=== PATIENT | female | born 1935 | race Caucasian/White ===

== ENCOUNTER 2019-01-24 12:00 | Observation (INO) | payer OTHER ==
[~2019-01-24] VITALS: Ht 157.5 cm; Wt 81.6 kg
[~2019-01-24 12:00] MED LIST: ATIVAN0.5 MG PO; AZITHROMYCIN 2250 MG PO; DIOVAN 80 MG TA80 M1 PO; ELIQUIS5 MG PO; FENOFIBRATE160 MG PO; FIBER0.52 G1 PO; FLAX SEED OIL1000 MG PO; MECLIZINE HCL12.5 MG PO; METFORMIN HCL500 MG PO; MULTIVITAMINS1 EAC7 PO; NEXIUM40 MG PO; PRAVACHOL20 MG PO; TUMS PO; VITAMIN E400 UNIT PO
[2019-01-24 12:01] VITALS: BP 82/50
[2019-01-24 12:30] LABS: ABSOLUTE EOSINOPHILS 0.1 thou/uL (0.0-0.7); ABSOLUTE LYMPHOCYTES 1.3 thou/uL (0.8-5.3); ABSOLUTE MONOCYTES 0.5 thou/uL (0.0-1.2); ABSOLUTE NEUTROPHILS 4.9 thou/uL (1.6-8.1); BASOPHILS 0.6 %; EOSINOPHILS 1.9 %; HEMATOCRIT 37.3 % (37.0-47.0); HEMOGLOBIN 12.2 gm/dL (12.0-15.0); LYMPHOCYTES 18.4 %; MCH 31.4 pg (26.0-34.0); MCHC 32.7 g/dL (28.0-37.0); MCV 96.1 fL (80.0-100.0); MONOCYTES 7.6 %; MPV 7.7 fl. (7.2-11.1); NUCLEATED RBCS 0 /100WBC; PLATELET COUNT* 286 thou/uL (150-400); POLYS 71.5 %; RBC 3.88 mil/uL (4.20-5.00); RDW-CV 13.6 % (10.5-14.5); WBC 6.9 thou/uL (4.0-11.0)
[2019-01-24 12:38] LABS: ANION GAP 7 mmol/L (7-16); BUN 27 mg/dL (7-18); CHLORIDE 106 mmol/L (98-107); CO2 30 mmol/L (21-32); CREATININE 1.3 mg/dL (0.6-1.3); GLUCOSE 115 mg/dL (70-99); POTASSIUM 4.4 mmol/L (3.5-5.1); SODIUM 143 mmol/L (136-145)
[2019-01-24 12:41] LABS: PROTIME 11.8 Seconds (9.20-11.50)
[2019-01-24 12:42] LABS: URINE BILIRUBIN NEGATIVE (Negative); URINE BLOOD NEGATIVE (Negative); URINE CLARITY CLEAR; URINE COLOR YELLOW; URINE GLUCOSE-RANDOM NEGATIVE (Negative); URINE KETONES TRACE (Negative); URINE LEUKOCYTES-REFLEX TRACE (Negative); URINE NITRITE-REFLEX NEGATIVE (Negative); URINE PROTEIN 1+ (Negative); URINE SPECIFIC GRAVITY >= 1.030 (1.005-1.030); URINE UROBILINOGEN 0.2 E.U./dl (0.2-1.0)
[2019-01-24 12:42] LABS: APTT 26.3 Seconds (25.0-31.3); INR 1.2
[2019-01-24 12:47] LABS: ALBUMIN 3.5 g/dL (3.4-5.0); ALKALINE PHOSPHATASE 33 U/L (46-116); LIPASE 106 U/L (73-393); SGOT 29 U/L (15-37); SGPT 29 U/L (30-65); TOTAL BILIRUBIN 0.3 mg/dL (<0.1-1.0); TOTAL PROTEIN 6.6 g/dL (6.4-8.2); TROPONIN-I LEVEL <0.06 ng/mL (<0.06)
[2019-01-24 12:49] LABS: BACTERIA-REFLEX 1-9 Few /HPF (None Seen); CRYSTALS None Seen /LPF (None Seen); FINE GRANULAR CASTS 0-3 Few /LPF (None Seen); HYALINE CASTS 4-10 Moderate /LPF (None Seen); MUCUS >6 Heavy strn/LPF (None Seen); SQUAMOUS 4-10 Moderate /LPF (0-3); URINE RBC 0-2 Rare /HPF (0-2); URINE WBC-REFLEX 0-5 Rare /HPF (0-5)
[2019-01-24 14:27] VITALS: BP 133/76
[2019-01-24 15:00] VITALS: BP 122/64
[2019-01-24 16:00] VITALS: BP 150/72; BP 156/72; BP 158/81
[2019-01-24 16:08] VITALS: BP 131/63
[2019-01-24 19:40] VITALS: BP 136/66
[2019-01-25] VITALS: BP 131/58
[2019-01-25 04:00] VITALS: BP 143/71
[2019-01-25 04:42] LABS: CALCIUM 8.7 mg/dL (8.5-10.1); CREATININE 0.9 mg/dL (0.6-1.3); MAGNESIUM 1.5 mg/dL (1.8-2.4); POTASSIUM 3.9 mmol/L (3.5-5.1)
[2019-01-25 08:06] VITALS: BP 144/76
[2019-01-25 09:48] VITALS: BP 144/76
[2019-01-25 12:15] VITALS: BP 155/78
--- NOTE | 2019-01-25 14:20 | 2DMMODE ---
[place] [address] 2 D/M-MODE ECHOCARDIOGRAM Name: RAMANDEEPNARAYAN Room: [address] Venus [place]row#: [id number] Admission: 01/24/19 Attend Phys: Desean Venegas, Discharge: Date of : 35 Date of Service: 01/25/19 1420 Report #: [id number] THIS REPORT FOR: //name// APPROVED REPORT Study performed: 01/25/2019 10:37:44 EXAM: Comprehensive 2D, Doppler, and color-flow Echocardiogram Patient Location: Bedside BSA: 1.82 HR: 92 bpm BP: 144/76 mmHg Other Information Study Quality: Fair Indications Diabetes 2D Dimensions IVSd: 12.58 (7-11mm) LVOT Diam: 18.15 (18-24mm) LVDd: 44.18 mm PWd: 10.88 (7-11mm) Ascending Ao: 27.14 (22-36mm) LVDs: 29.09 (25-40mm) Aortic Root: 27.76 mm Volumes Left Atrial Volume (Systole) LA ESV Index: 25.90 mL/m2 Aortic Valve AoV Peak Frank.: 1.36 m/s AO Peak Gr.: 7.44 mmHg LVOT Max P.60 mmHg AO Mean Gr.: 4.25 mmHg LVOT Mean P.26 mmHg LVOT Max V: 0.81 m/s AO V2 VTI: 23.90 cm LVOT Mean V: 0.51 m/s AGUSTIN (VTI): 1.69 cm2 LVOT V1 VTI: 15.57 cm Mitral Valve E/A Ratio: 0.80 MV Decel. Time: 147.11 ms MV E Max Frank.: 0.70 m/s MV PHT: 42.66 ms MVA (PHT): 5.16 cm2 [place] [address] 2 D/M-MODE ECHOCARDIOGRAM Name: NARAYAN SABILLON Room: [address] M.R.#: [id number] Admission: 01/24/19 Attend Phys: Desean Venegas, Discharge: Date of : 35 Date of Service: 01/25/19 1420 Report #: [id number] TDI E/Lateral E': 8.75 E/Medial E': 7.78 Medial E' Frank.: 0.09 m/s Lateral E' Frank.: 0.08 m/s Pulmonary Valve PV Peak Frank.: 0.82 m/s PV Peak Gr.: 2.70 mmHg Tricuspid Valve RAP Estimate: 5.00 mmHg TR Peak Gr.: 21.12 mmHg RVSP: 26.12 mmHg PA Pressure: 26.12 mmHg Left Ventricle The left ventricle is normal size. There is normal LV segmental wall motion. There is normal left ventricular wall thickness. Left ventricular systolic function is normal. The left ventricular ejection fraction is within the normal range. LVEF is 55-60%. Grade I - abnormal relaxation pattern. Right Ventricle The right ventricle is normal size. The right ventricular systolic function is normal. Atria The left atrium size is normal. The right atrium size is normal. Aortic Valve Mild aortic valve sclerosis. No aortic regurgitation is present. There is no aortic valvular stenosis. Mitral Valve There is mitral annular calcification. Mild mitral regurgitation jet is eccentrically directed. No evidence of mitral valve stenosis. Tricuspid Valve The tricuspid valve is normal in structure. Trace tricuspid regurgitation. Pulmonic Valve The pulmonary valve is normal in structure. There is no pulmonic [place]vular [place] [address] 2 D/M-MODE ECHOCARDIOGRAM Name: NARAYAN SABILLON Room: [address]#: [id number] Admission: 01/24/19 Attend Phys: Desean Venegas, Discharge: Date of : 35 Date of Service: 01/25/19 1420 Report #: [id number] Great Vessels The aortic root is normal in size. IVC is normal in size and collapses >50% with inspiration. Pericardium There is no pericardial effusion. <Conclusion> The left ventricle is normal size. There is normal left ventricular wall thickness. Left ventricular systolic function is normal. The left ventricular ejection fraction is within the normal range. LVEF is 55-60%. Grade I - abnormal relaxation pattern. The right ventricle is normal size. The left atrium size is normal. Mild aortic valve sclerosis. No aortic regurgitation is present. There is no aortic valvular stenosis. There is mitral annular calcification. Mild mitral regurgitation jet is eccentrically directed. No evidence of mitral valve stenosis. The tricuspid valve is normal in structure. IVC is normal in size and collapses >50% with inspiration. There is no pericardial effusion. There is normal LV segmental wall motion. <ELECTRONICALLY SIGNED> By: David Kelsey MD, FACC 01/25/19 1420 142 1420 David Kelsey MD, FACC /INF
--- NOTE | 2019-01-25 14:46 | EKG ---
[place] [address] ELECTROCARDIOGRAM REPORT Name: NARAYAN SABILLON Room: [address]R.#: [id number] Admission: 01/24/19 Attend Phys: Desean Venegas MD Discharge: Date of : 35 Report #: [id number] THIS REPORT FOR: //name// [facility] ED Test Date: 2019-01-24 Test Time: 12:13:47 Pat Name: NARAYAN SABILLON Department: Room: [facility] Gender: F Account Contact Associate: PA : 1935 Requested By: Parag Cunningham Order Number: [id number] MD: Bran Melendrez Measurements Intervals [place] Rate: 88 P: 44 AK: 171 QRS: 19 QRSD: 94 T: 57 QT: 470 QTc: 569 Interpretive Statements Sinus rhythm Borderline T abnormalities, anterior leads Prolonged QT interval Compared to ECG 07/25/2016 22:13:41 Prolonged QT interval now present Sinus tachycardia no longer present T-wave abnormality still present Electronically Signed On 01-25-2019 14:46:48 CDT by Bran Melendrez [email or web address] <ELECTRONICALLY SIGNED> By: Bran Melendrez MD, FACC 01/25/19 1446 1213 1213 Bran Melendrez MD, [facility] /EPI
--- NOTE | 2019-01-25 14:52 | EKG ---
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1935 Requested By: Desean Venegas Order Number: [id number] Reading MD: Bran Melendrez Measurements Intervals [place] Rate: 100 P: 63 DE: 177 QRS: 30 QRSD: 90 T: 44 QT: 388 QTc: 501 Interpretive Statements Sinus tachycardia Abnormal R-wave progression, early transition Borderline T abnormalities, anterior leads Prolonged QT interval Compared to ECG 07/25/2016 22:13:41 Prolonged QT interval now present T-wave abnormality still present Electronically Signed On 01-25-2019 14:52:36 CDT by Bran Melendrez [email or web address] <ELECTRONICALLY SIGNED> By: Bran Melendrez MD, FACC 01/25/19 1452 0849 0849 Bran Melendrez MD, [facility] /EPI
== END 2019-01-25 14:57 | disposition home or self-care (01) ==
LOC: M.ERS 12:00 → M.2W 13:20 → M.TBA-ER 13:20 → M.2W 13:20
PROVIDERS: Family Medicine; ADMIT Internal Medicine
DX: R55 Syncope and collapse (principal); Z86.711 Personal history of pulmonary embolism; E11.9 Type 2 diabetes mellitus without complications; I25.9 Chronic ischemic heart disease, unspecified; I95.9 Hypotension, unspecified; E86.9 Volume depletion, unspecified; K21.9 Gastro-esophageal reflux disease without esophagitis; F41.9 Anxiety disorder, unspecified; I11.0 Hypertensive heart disease with heart failure; I50.30 Unspecified diastolic (congestive) heart failure; D68.59 Other primary thrombophilia; I45.81 Long QT syndrome; Z88.5 Allergy status to narcotic agent; Z88.2 Allergy status to sulfonamides; Z87.891 Personal history of nicotine dependence; Z98.890 Other specified postprocedural states; Z79.899 Other long term (current) drug therapy; I95.2 Hypotension due to drugs

== ENCOUNTER 2019-12-31 17:49 | Emergency (ER) | payer OTHER ==
[~2019-12-31] VITALS: Ht 160 cm; Wt 86.6 kg
[2019-12-31] MEDS ORDERED: HYDROCODON-ACE1 EAC7 PO (18:04)
[2019-12-31] MEDS ORDERED: ZOFRAN ODT4 MG PO (18:04)
[2019-12-31 20:06] VITALS: BP 118/76
== END 2019-12-31 20:07 | disposition home or self-care (01) ==
LOC: M.ERS 17:49
DX: S42.292A Other displaced fracture of upper end of left humerus, initial encounter for closed fracture (principal); I10 Essential (primary) hypertension; E11.9 Type 2 diabetes mellitus without complications; K21.9 Gastro-esophageal reflux disease without esophagitis; F41.9 Anxiety disorder, unspecified; Z98.51 Tubal ligation status; Z86.711 Personal history of pulmonary embolism; Z88.2 Allergy status to sulfonamides; Z88.6 Allergy status to analgesic agent; W18.39XA Other fall on same level, initial encounter; Y93.89 Activity, other specified; Y92.89 Other specified places as the place of occurrence of the external cause; Y99.8 Other external cause status

== ENCOUNTER 2020-03-31 09:22 | Inpatient (IN) | payer OTHER ==
[~2020-03-31] VITALS: Ht 162.6 cm; Wt 78.0 kg
--- NOTE | ~2020-03-31 | CON ---
[facility] [address] [place] [address] CONSULTATION Name: RAMANDEEPNARAYAN Morocho Room: [address] IN .R.#: [id number] Admission: 03/31/20 Attend Phys: Lui Adames Discharge: Date of : 35 Report #: [id number] THIS REPORT FOR: //name// cc: Sarai Garcia Maggie M. DO ~ THIS REPORT FOR: //name// CC: Sarai Mesa DATE OF SERVICE: 03/31/2020 HISTORY OF PRESENT ILLNESS: This is an 84-year-old female patient who was seen by me for the possibility of stroke. The patient was discussed with Dr. Mesa as well as Emergency Room physician. The patient's daughter provided history. The patient lives alone. She talks through the daughter. Daughter could not understand because she was seeing only a few words. The last known well was yesterday. She is on Eliquis for deep vein thrombosis, she has been on it for a long time. REVIEW OF SYSTEMS: Positive for anxiety, eye surgery, back surgery, head surgery, tubal ligation, diabetes, hypertension, pulmonary hypertension. This was her 14-point review of system. PAST MEDICAL HISTORY: Negative for stroke. FAMILY HISTORY: Negative for early age stroke. SOCIAL HISTORY: She does not smoke. PHYSICAL EXAMINATION: Indicates she is alert. She is having a lot of speech difficulty. She does have problem with the shoulder, but otherwise neuromuscular examination is symmetrical. There is no meningeal sign. There is no carotid bruit in this patient. Blood pressure is running about 163/100, it was higher earlier. This patient was seen in the Emergency Room. She was discussed with Emergency Room physician and initial suspicion was a possible CVA, but the patient underwent a CT angio that was unremarkable. I got a stat MRI and I looked at it. That is also unremarkable. IMPRESSION: It does not look like the stroke is the etiology of the patient's symptoms. We do not know what the etiology is though, I am going to get an EEG done. MRI can miss the stroke, but that is not very common [place] [address] CONSULTATION Name: NARAYAN SABILLON Room: [address] IN [facility]#: [id number] Admission: 03/31/20 Attend Phys: Lui Adames Discharge: Date of : 35 Report #: [id number] to look for other causes. About 50 minutes of time was spent taking care of this patient today and majority was spent counseling and coordinating. By: 1530 [id number] Perez MD /nt
--- NOTE | ~2020-03-31 | EEG ---
[address] [address] EEG STUDY REPORT Name: RAMANDEEP,NARAYAN J Room: [address] IN .R.#: [id number] Admission: 03/31/20 Attend Phys: Lui Adames Discharge: Date of : 35 Report #: [id number] THIS REPORT FOR: //name// CC: Sarai Mesa DATE OF SERVICE: 03/31/2020 This patient is being evaluated for an episode with stroke-like symptoms. Background activity in this patient's EEG is about 8-9 Hz and 30 microvolt on the right side. EEG is asymmetrical and it does appear to be somewhat suppressed on the left side in general as compared to the right side. Photic stimulation is unremarkable. The patient became drowsy that is associated with bilateral slowing and vertex sharp waves. No active epileptiform activity was noted. IMPRESSION: This patient's EEG is suppressed on the left side. That is a nonspecific abnormality, which can occur with postictal period, prior insult to the brain on the left side, etc. Clinical correlation is recommended. By: 1644 [id number] Perez MD /nt
[~2020-03-31 09:22] MED LIST changes: +HYDROCODON-ACE1 EAC7 PO; +ZOFRAN ODT4 MG PO
[2020-03-31 09:50] VITALS: BP 181/113
[2020-03-31 10:08] LABS: ABSOLUTE BASOPHILS 0.1 thou/uL (0.0-0.2); ABSOLUTE EOSINOPHILS 0.2 thou/uL (0.0-0.7); ABSOLUTE LYMPHOCYTES 1.4 thou/uL (0.8-5.3); ABSOLUTE MONOCYTES 0.4 thou/uL (0.0-1.2); ABSOLUTE NEUTROPHILS 6.3 thou/uL (1.6-8.1); BASOPHILS 0.8 %; HEMATOCRIT 41.8 % (37.0-47.0); HEMOGLOBIN 14.4 gm/dL (12.0-15.0); MCH 32.4 pg (26.0-34.0); MCHC 34.4 g/dL (28.0-37.0); MCV 94.3 fL (80.0-100.0); MONOCYTES 4.6 %; MPV 7.6 fl. (7.2-11.1); NUCLEATED RBCS 0 /100WBC; PLATELET COUNT* 289 thou/uL (150-400); POLYS 75.6 %; RBC 4.43 mil/uL (4.20-5.00); RDW-CV 13.2 % (10.5-14.5); WBC 8.3 thou/uL (4.0-11.0)
[2020-03-31 10:19] LABS: CALCIUM 8.6 mg/dL (8.5-10.1); CREATININE 0.8 mg/dL (0.6-1.3); POTASSIUM 4.1 mmol/L (3.5-5.1)
[2020-03-31 10:23] LABS: ALBUMIN 4.1 g/dL (3.4-5.0); APTT 27.2 Seconds (25.0-31.3); INR 1.1; MAGNESIUM 1.6 mg/dL (1.8-2.4); PROTIME 11.4 Seconds (9.20-11.50); TOTAL BILIRUBIN 0.3 mg/dL (<0.1-1.0); TOTAL PROTEIN 7.9 g/dL (6.4-8.2)
[2020-03-31 10:53] LABS: URINE BILIRUBIN NEGATIVE (Negative); URINE BLOOD NEGATIVE (Negative); URINE CLARITY CLEAR; URINE COLOR YELLOW; URINE GLUCOSE-RANDOM 1+ (Negative); URINE KETONES NEGATIVE (Negative); URINE LEUKOCYTES-REFLEX TRACE (Negative); URINE NITRITE-REFLEX NEGATIVE (Negative); URINE PROTEIN 1+ (Negative); URINE UROBILINOGEN 0.2 E.U./dl (0.2-1.0)
[2020-03-31 11:03] LABS: SQUAMOUS 4-10 Moderate /LPF (0-3)
[2020-03-31 11:04] LABS: BACTERIA-REFLEX 1-9 Few /HPF (None Seen); CASTS None Seen /LPF (None Seen); CRYSTALS None Seen /LPF (None Seen); MUCUS None Seen strn/LPF (None Seen); URINE RBC 0-2 Rare /HPF (0-2); URINE WBC-REFLEX 0-5 Rare /HPF (0-5)
[2020-03-31 16:21] LABS: ALBUMIN 4.1 g/dL (3.4-5.0); CALCIUM 8.8 mg/dL (8.5-10.1); POTASSIUM 4.7 mmol/L (3.5-5.1); TOTAL BILIRUBIN 0.3 mg/dL (<0.1-1.0); TOTAL PROTEIN 8.1 g/dL (6.4-8.2)
--- NOTE | 2020-03-31 16:40 | EKG ---
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: : 1935 Requested By: Jazz sU Order Number: [id number] MD: David Kelsey Measurements Intervals [place] Rate: 107 P: 71 VA: 167 QRS: 26 QRSD: 93 T: 56 QT: 342 QTc: 457 Interpretive Statements Sinus tachycardia Compared to ECG 01/25/2019 08:49:58 T-wave abnormality no longer present Prolonged QT interval no longer present Electronically Signed On 03-31-2020 16:40:03 CDT by David Kelsey [email or web address] <ELECTRONICALLY SIGNED> By: David Kelsey MD, [facility] 03/31/20 1640 1020 1020 David Kelsey MD, [facility] /EPI
[2020-03-31 16:41] VITALS: BP 163/101
[2020-03-31 17:00] VITALS: BP 138/72
--- NOTE | 2020-03-31 17:03 | 2DMMODE ---
[place] [address] 2 D/M-MODE ECHOCARDIOGRAM Name: NARAYAN SABILLON Room: [facility] ADM IN .R.#: [id number] Admission: 03/31/20 Attend Phys: Vasyl Mesa Discharge: Date of : 35 Date of Service: 03/31/20 1703 Report #: [id number] THIS REPORT FOR: cc: Sarai Garcia Maggie M. DO Holkins, John M. MD [facility] ~ APPROVED REPORT Study performed: 03/31/2020 16:09:50 EXAM: Comprehensive 2D, Doppler, and color-flow Echocardiogram Patient Location: In-Patient Room #: er Status: routine BSA: 1.90 HR: 116 bpm BP: 150/81 mmHg Rhythm: NSR Other Information Study Quality: Good Indications CVA/TIA Echo Enhancing Agent Indication: Rule out Shunt Agent(s) / Amount(s) Used: Agitated Saline 10 cc 2D Dimensions IVSd: 8.37 (7-11mm) LVOT Diam: 19.90 (18-24mm) LVDd: 50.52 mm PWd: 8.59 (7-11mm) Ascending Ao: 31.46 (22-36mm) LVDs: 39.65 (25-40mm) Aortic Root: 33.89 mm Volumes Left Atrial Volume (Systole) LA ESV Index: 14.70 mL/m2 Aortic Valve AoV Peak Frank.: 1.64 m/s AO Peak Gr.: 10.77 mmHg LVOT Max P.12 mmHg AO Mean Gr.: 6.08 mmHg LVOT Mean P.59 [place] [address] 2 D/M-MODE ECHOCARDIOGRAM Name: NARAYAN SABILLON Room: [address] IN ..#: [id number] Admission: 03/31/20 Attend Phys: Vasyl Mesa Discharge: Date of : 35 Date of Service: 03/31/20 1703 Report #: [id number] LVOT Max V: 0.88 m/s AO V2 VTI: 28.70 cm LVOT Mean V: 0.58 m/s AGUSTIN (VTI): 1.71 cm2 LVOT V1 VTI: 15.83 cm TDI Medial E' Frank.: 0.06 m/s Lateral E' Frank.: 0.09 m/s Pulmonary Valve PV Peak Frank.: 0.88 m/s PV Peak Gr.: 3.12 mmHg Left Ventricle The left ventricle is normal size. Regional wall motion abnormalities are noted with mid-distal septal and anteroapical hypo-akinesis. There is normal left ventricular wall thickness. Left ventricular systolic function is moderately decreased. LVEF is 35-40%. Grade I - abnormal relaxation pattern. Right Ventricle The right ventricle is normal size. The right ventricular systolic function is normal. Atria The left atrium size is normal. The right atrium size is normal. Aortic Valve Mild aortic valve sclerosis. No aortic regurgitation is present. No hemodynamically significant valvular aortic stenosis. Mitral Valve Moderate mitral annular calcification. There is no mitral valve regurgitation noted. No evidence of mitral valve stenosis. Tricuspid Valve The tricuspid valve is normal in structure. Unable to assess PA pressure. Trace tricuspid regurgitation. Pulmonic Valve The pulmonary valve is normal in structure. There is no pulmonic valvular regurgitation. Great Vessels The aortic root is normal in size. IVC is normal in size and collapses >50% [place] [address] 2 D/M-MODE ECHOCARDIOGRAM Name: NARAYAN SABILLON Room: [address] IN [facility]#: [id number] Admission: 03/31/20 Attend Phys: Vasyl Mesa Discharge: Date of : 35 Date of Service: 03/31/20 1703 Report #: [id number] Pericardium There is no pericardial effusion. <Conclusion> The left ventricle is normal size. There is normal left ventricular wall thickness. Left ventricular systolic function is moderately decreased. LVEF is 35-40%. Grade I - abnormal relaxation pattern. The right ventricle is normal size. The left atrium size is normal. Mild aortic valve sclerosis. No aortic regurgitation is present. No hemodynamically significant valvular aortic stenosis. Moderate mitral annular calcification. There is no mitral valve regurgitation noted. No evidence of mitral valve stenosis. The tricuspid valve is normal in structure. IVC is normal in size and collapses >50% with inspiration. There is no pericardial effusion. Regional wall motion abnormalities are noted with mid-distal septal and anteroapical hypo-akinesis. <ELECTRONICALLY SIGNED> By: David Kelsey MD, FACC 03/31/20 1703 170 02 David Kelsey MD, FACC /INF
[2020-03-31] MEDS ORDERED: CYMBALTA30 MG PO (17:46)
[2020-03-31 19:30] VITALS: BP 123/64
[2020-04-01] VITALS (7 sets, daily range): BP systolic 99–150; BP diastolic 51–90
[2020-04-01 02:06] LABS: GLYCOHEMOGLOBIN (HGB A1C) 6.2 % (4.8-5.6)
[2020-04-01 04:45] LABS: CHOLESTEROL 149 mg/dL (<200); HDL CHOLESTEROL 33 mg/dL (>40); LDL CHOLESTEROL 87 mg/dL (<100); TC:HDL 4.5 Ratio (Not establshd); TRIGLYCERIDE 148 mg/dL (<150); VLDL 30 mg/dL (<40)
[2020-04-01 05:06] LABS: SERUM ASSESSMENT CLEAR
[2020-04-01] MEDS ORDERED: CARVEDILOL12.5 MG PO (15:11)
[2020-04-02 04:00] VITALS: BP 142/81
[2020-04-02 08:00] VITALS: BP 136/64
[2020-04-02] MEDS ORDERED: KEFLEX500 M1 PO (09:55)
[2020-04-02 11:35] VITALS: BP 136/64
[2020-04-02 12:00] VITALS: BP 143/69
[2020-04-02 12:30] VITALS: BP 129/82
== END 2020-04-02 13:13 | disposition home or self-care (01) | DRG 64 ==
LOC: M.ERS 09:22 → M.TBA-ER 13:40 → M.2W 13:40
PROVIDERS: Personal Emergency Response Attendant; ADMIT Internal Medicine; ATTEND Internal Medicine
DX: I63.9 Cerebral infarction, unspecified (principal); G93.41 Metabolic encephalopathy; N39.0 Urinary tract infection, site not specified; D68.59 Other primary thrombophilia; I50.32 Chronic diastolic (congestive) heart failure; K21.9 Gastro-esophageal reflux disease without esophagitis; F41.9 Anxiety disorder, unspecified; E11.9 Type 2 diabetes mellitus without complications; I27.20 Pulmonary hypertension, unspecified; Z20.828 Contact with and (suspected) exposure to other viral communicable diseases; Z79.899 Other long term (current) drug therapy; Z79.01 Long term (current) use of anticoagulants; Z98.51 Tubal ligation status; Z86.711 Personal history of pulmonary embolism; Z88.2 Allergy status to sulfonamides; Z87.891 Personal history of nicotine dependence; Z88.5 Allergy status to narcotic agent; I11.0 Hypertensive heart disease with heart failure

== ENCOUNTER 2020-06-01 16:45 | Emergency (ER) | payer OTHER ==
[~2020-06-01] VITALS: Ht 160 cm; Wt 77.1 kg
[~2020-06-01 16:45] MED LIST changes: +CARVEDILOL12.5 MG PO; +CYMBALTA30 MG PO; +KEFLEX500 M1 PO
[2020-06-01 19:24] LABS: URINE BILIRUBIN NEGATIVE (Negative); URINE BLOOD NEGATIVE (Negative); URINE COLOR YELLOW; URINE GLUCOSE-RANDOM NEGATIVE (Negative); URINE KETONES TRACE (Negative); URINE LEUKOCYTES-REFLEX TRACE (Negative); URINE NITRITE-REFLEX NEGATIVE (Negative); URINE PROTEIN NEGATIVE (Negative); URINE SPECIFIC GRAVITY >= 1.030 (1.005-1.030); URINE UROBILINOGEN 0.2 E.U./dl (0.2-1.0)
[2020-06-01 19:26] LABS: URINE CLARITY HAZY
[2020-06-01 19:33] LABS: BACTERIA-REFLEX None Seen /HPF (None Seen); CASTS None Seen /LPF (None Seen); CRYSTALS None Seen /LPF (None Seen); SQUAMOUS 0-3 Few /LPF (0-3); URINE RBC None Seen /HPF (0-2); URINE WBC-REFLEX 0-5 Rare /HPF (0-5)
[2020-06-01 20:16] LABS: ABSOLUTE BASOPHILS 0.1 thou/uL (0.0-0.2); ABSOLUTE EOSINOPHILS 0.3 thou/uL (0.0-0.7); ABSOLUTE LYMPHOCYTES 1.7 thou/uL (0.8-5.3); ABSOLUTE MONOCYTES 0.6 thou/uL (0.0-1.2); ABSOLUTE NEUTROPHILS 3.9 thou/uL (1.6-8.1); EOSINOPHILS 4.9 %; HEMATOCRIT 39.2 % (37.0-47.0); HEMOGLOBIN 13.1 gm/dL (12.0-15.0); LYMPHOCYTES 26.5 %; MCH 31.8 pg (26.0-34.0); MCHC 33.4 g/dL (28.0-37.0); MCV 95.2 fL (80.0-100.0); MONOCYTES 8.7 %; MPV 7.5 fl. (7.2-11.1); NUCLEATED RBCS 0 /100WBC; PLATELET COUNT* 268 thou/uL (150-400); POLYS 58.9 %; RBC 4.12 mil/uL (4.20-5.00); RDW-CV 13.4 % (10.5-14.5); WBC 6.6 thou/uL (4.0-11.0)
[2020-06-01 20:21] LABS: CALCIUM 9.7 mg/dL (8.5-10.1); CREATININE 1.2 mg/dL (0.6-1.3); POTASSIUM 4.2 mmol/L (3.5-5.1)
[2020-06-01 20:26] LABS: ALBUMIN 3.8 g/dL (3.4-5.0); TOTAL BILIRUBIN 0.2 mg/dL (<0.1-1.0); TOTAL PROTEIN 7.6 g/dL (6.4-8.2)
[2020-06-01 21:09] VITALS: BP 152/86
== END 2020-06-01 21:10 | disposition home or self-care (01) ==
LOC: M.ERS 16:45
PROVIDERS: Family Medicine; Physician Assistant
DX: N39.0 Urinary tract infection, site not specified (principal); K21.9 Gastro-esophageal reflux disease without esophagitis; I10 Essential (primary) hypertension; E11.9 Type 2 diabetes mellitus without complications; Z79.899 Other long term (current) drug therapy; Z88.6 Allergy status to analgesic agent; Z88.2 Allergy status to sulfonamides

== ENCOUNTER → 2020-08-10 | Outpatient (CLI) | payer OTHER | LOC: M.CT 13:29 | PROVIDERS: ATTEND Family Medicine | DX: R91.1 Solitary pulmonary nodule (principal); I25.10 Atherosclerotic heart disease of native coronary artery without angina pectoris ==